=== PATIENT | male | born 1965 | race Caucasian/White ===

== ENCOUNTER → 2017-10-03 | Outpatient (CLI) | payer BC ==
[~2017-10-03] VITALS: Ht 174 cm; Wt 134.8 kg
[~2017-10-03] MED LIST: ACID REDUCER 1150 MG PO; AMLOD-VALSA-HC1 EAC2 PO; BENEFIBER152 GM PO; CARDIZEM60 MG PO; EXFORGE HCT 101 EAC1 PO; HYDROCODON-ACE1 EAC7 PO; JANUMET 50/11 TABLET PO; JANUMET XR 50-1 EAC1 PO; JARDIANCE25 MG PO; LASIX40 MG PO; PRAVACHOL80 MG PO; PRAVASTATIN SOD80 MG PO; TRICOR145 MG PO
== END | disposition home or self-care (01) ==
LOC: AMB 09:30
PROVIDERS: Internal Medicine
DX: Z12.11 Encounter for screening for malignant neoplasm of colon (principal); K29.50 Unspecified chronic gastritis without bleeding; B96.81 Helicobacter pylori [H. pylori] as the cause of diseases classified elsewhere; D12.3 Benign neoplasm of transverse colon; R11.0 Nausea; K59.00 Constipation, unspecified; F17.200 Nicotine dependence, unspecified, uncomplicated; K64.4 Residual hemorrhoidal skin tags; K21.9 Gastro-esophageal reflux disease without esophagitis; E11.22 Type 2 diabetes mellitus with diabetic chronic kidney disease; I12.9 Hypertensive chronic kidney disease with stage 1 through stage 4 chronic kidney disease, or unspecified chronic kidney disease; N18.9 Chronic kidney disease, unspecified; E66.9 Obesity, unspecified; N18.1 Chronic kidney disease, stage 1; Z83.3 Family history of diabetes mellitus; Z82.49 Family history of ischemic heart disease and other diseases of the circulatory system
CPT/HCPCS: 82948; 88305; 88342 TC; 93005